=== PATIENT | male | born 1955 | race Caucasian/White ===

== ENCOUNTER 2019-02-18 13:26 | Observation (INO) ==
--- NOTE | 2019-02-18 13:51 | ERNOTE ---
Dyspnea - Date Date of Service: 02/18/19 - General Presenting Symptoms: shortness of breath Time Seen by Provider: 02/18/19 13:42 Source: patient Exam Limitations: no limitations - Immun/Allergies/Home Medications Immunizations: IMMUNIZATION HX Immunizations Up to Date Yes History of Influenza Vaccine No Hx Pneumococcal Vaccination No Allergies/Adverse Reactions: Allergies feathers Adverse Reaction (Uncoded 02/18/19 13:40) Home Medications: HOME MEDICATIONS Alprazolam [Xanax] 1 mg PO BID 11/01/13 [Last Taken Unknown] Dextroamphetamine/Amphetamine [Adderall Xr 30 mg Capsule] 30 mg PO BID 11/01/13 [Last Taken Unknown] HYDROcodone/ACETAMINOPHEN [Vicodin 5-325] 1 each PO QID 11/01/13 [Last Taken Unknown] QUEtiapine FUMARATE [Seroquel] 100 mg PO DAILY 11/01/13 [Last Taken Unknown] - History of Present Illness Narrative: Patient presents to the ED for SOB. This has been worsening since he was here in October. He takes his Lasix off and on, not consistently. The SOB has been getting progressively worse. No CP. Legs with increased swelling. No fever or cough. This started after inhaling black mold in October. His abdomen is more bloated. 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 Denies: fever/chills, chest pain/discomfort Prior Treatment: Denies: recently seen Review of Systems - Review of Systems Constitutional: Absent: fever EYE: Present: no symptoms reported ENT: Absent: sore throat Respiratory: Present: shortness of breath Cardiology: Absent: chest pain Gastrointestinal/Abdominal: Present: other - abdominal bloating. Absent: abdominal pain Genitourinary: Absent: dysuria All Other Systems: All systems neg except as marked Social History: Preferred Language Turkmen Do you have any sabianism or No cultural preference? Smoking Status Current every day smoker Have you smoked in the past 12 Yes months Do you dip or chew tobacco No Alcohol Use occasionally Drug Use none No Social History Section defined Physical Exam - Physical Exam General Appearance: Present: alert, mild distress Head Exam: Present: normal inspection, no evidence of injury Eye Exam: Normal inspection: bilateral, PERRL: bilateral Ears, Nose, Throat: Present: normal ENT inspection Neck: Present: normal inspection Respiratory: Present: respiratory distress, crackles, other - mild tachypnea Cardiovascular/Chest: Present: normal peripheral pulses, tachycardia Gastrointestinal/Abdominal: Present: normal bowel sounds, nontender, soft, other - probable ascites clinically Back Exam: Absent: CVA tenderness (R), CVA tenderness (L) Extremity Exam: Present: extremity edema, other - significant bilateral pitting edema Neurological Exam: Present: alert, no motor/sensory deficits Skin Exam: Present: normal color, warm/dry Progress - Results and Orders Patient's Lab Results:: I have reviewed the patient's lab results. - Vital Signs Patient's Vital Signs:: I have reviewed the patient's vital signs. Vital Signs: Vital Signs 02/18/19 13:37 Temperature 36.6 C Pulse Rate 111 H Respiratory Rate 26 H Blood Pressure 146/75 O2 Sat by Pulse Oximetry 95 - EKG EKG #1 EKG read: Interp. by la EKG Comments: Sinus tachycardia rate 109, PVCs. Non-specific ST/T wave changes, no STEMI noted. - X-Ray X-Ray #1 X-Ray: chest Interpretation: Interp. by me X-ray Comments: I reviewed official radiology report - CT/Ultrasound CT/Ultrasound Narrative: I reviewed official radiology report of CT - Progress/Reassessment Chief Complaint: Dyspnea Progress Note-Subjective: 02/18/19 16:39 Patient given IV lasix. This is new onset CHF. He maintains resting tachycardia. His respiratory status is improved after IV lasix. D/W Dr Jamison, will admit obs for new onset chf. Patient agreeable. Departure Clinical Impression: New onset of congestive heart failure, Edema, Tachycardia - Departure Disposition: Still a patient Condition: Fair Referrals: Anshul Monet DO [Primary Care Provider] -
[2019-02-18 14:02] LABS: Hematocrit 43.9 % (42.0-52.0); Hemoglobin 14.1 gm/dL (13.5-18.0); Mean Cell Volume 92.8 fl (78-100); Mean Corpuscular Hemoglobin 29.8 pg (27-31); Mean Corpuscular Hgb Conc 32.1 g/dl (32-36); Mean Platelet Volume 8.9 fl (8-11.3); Neutrophil # 4.9 K/mm3 (1.3-6.0); Platelet Count 357 K/mm3 (150-450); Red Blood Count 4.73 M/mm3 (4.7-6.0); Red Cell Distribution Width 15.6 % (11.5-14.0); White Blood Count 7.1 K/mm3 (4.0-10.5)
[2019-02-18 14:03] LABS: Urine Bilirubin Negative (NEGATIVE); Urine Blood Negative /ul (NEGATIVE); Urine Ketone Negative (NEGATIVE); Urine Nitrite Negative (NEGATIVE); Urine Protein Negative (NEGATIVE); Urine Specific Gravity 1.015 SP.GR. (1.005-1.030); Urine pH 5.5 pH (5.0-7.0)
[2019-02-18 14:12] LABS: Urine Appearance Clear (CLEAR); Urine Bacteria TRACE; Urine Color Colorless; Urine RBC None Seen /hpf (0-5); Urine WBC None Seen /hpf (0-5)
[2019-02-18 14:19] LABS: Albumin * 3.5 gm/dl (3.4-5.0); Anion Gap 17.1 mmol/L (6.8-13.8); Bilirubin, Total 0.5 mg/dL (0.0-1.1); Ca. Corrected For Albumin 9.6 mg/dL (8.4-10.2); Calcium * 9.5 mg/dL (7.9-10.9); Carbon Dioxide 23.6 mmol/L (24-32.6); Potassium 4.7 mmol/L (3.4-4.6)
[2019-02-18 14:20] LABS: Troponin I 0.043 ng/mL (0.00-0.10)
[2019-02-18] MEDS ORDERED: FUROSEMIDE 10 MG/ML VIAL IV ONE (14:50)
[2019-02-18] MEDS ORDERED: ACETAMINOPHEN 325 MG TABLET PO PRN (19:39)
[2019-02-18] MEDS ORDERED: HYDROcodone/ACETAMINOPHEN 1 EACH TABLET PO PRN (20:10)
--- NOTE | 2019-02-18 20:24 | HP ---
Chief Complaint - Chief Complaint Date of Service: 02/18/19 Time of Service: 20:11 Chief Complaint: I have had worsening shortness of breath for the past several months, this morning it got worse. History of Present Illness: 64-year-old male with past medical history of ADHD, anxiety disorder, CHF, controlled type 2 diabetes, hypertension, hypothyroidism, and cigarette smoker was evaluated in our ER due to worsening shortness of breath over the past several days. Patient was recently diagnosed with CHF by his PCP and was prescribed furosemide daily, however patient admits to not taking the medication as prescribed and not being very compliant with it. He notes that since October he has been having worsening shortness of breath which had remained stable but over the past several days it got worse with accompanying bilateral pedal edema that made it difficult to ambulate. When patient arrived to the ER he was saturating adequately but had labored breathing. ER labs demonstrated an elevated BNP over 5000 and a positive d-dimer. Chest CT angio was ordered to rule out PE but was negative for PE, however it demonstrated that the patient had bilateral pleural edema and pulmonary vascular congestion which indicates a CHF. Checks x-ray confirmed the pleural pleural edema and pulmonary vascular congestion. Patient also arrived with a tachycardia so EKG was performed and revealed sinus tachycardia with nonspecific ST and T waves changes and ruled out OR. Patient denied chest pain or any other symptoms besides his shortness of breath and pedal edema. Medical History (Updated 02/18/19 @ 16:53 by Nita De Paz RN) ADHD Anxiety Cataract Diabetes type 2, controlled Hypertension Hypothyroid Pterygium eye Surgical History: Surgical History (Updated 02/18/19 @ 16:51 by Nita De Paz RN) H/O hernia repair History of ear surgery Hx of adenoidectomy Family History: Family History (Last Reviewed 02/18/19 @ 17:31 by Yoli Naqvi RN) Brother Type 2 diabetes mellitus Mother Hypertension Lung cancer Social History: Patient Lives/Resources With Spouse Utilized Preferred Language Japanese Do you have any lutheran or No cultural preference? Smoking Status Current every day smoker Have you smoked in the past 12 Yes months Do you dip or chew tobacco No Alcohol Use occasionally Drug Use none No Social History Section defined Peds Patient Hx - Developmental: No Pertinent Hx Peds Patient Hx - Medical: No Pertinent Hx Peds Patient Hx - Cardiac/Respiratory: No Pertinent Hx Peds Patient Hx - Surgical: No Surgical History Patient History - Cancer: No Hx of Cancer Review Of Systems (GEN) - Review of Systems Generalized/Overall Review: Present: Fatigue, Weight gain EENTM: Present: No Symptoms Reported Respiratory: Present: Shortness of Breath Cardiac: Present: Edema Abdominal: Present: No Symptoms Reported Genitourinary: Present: No Symptoms Reported Musculoskeletal: Present: No Symptoms Reported Neurological: Present: No Symptoms Reported Skin: Present: No Symptoms Reported Endocrine: Present: No Symptoms Reported Immunizations: IMMUNIZATION HX Immunizations Up to Date Yes History of Influenza Vaccine No Hx Pneumococcal Vaccination No Allergies/Adverse Reactions: Allergies Allergy/AdvReac Type Severity Reaction Status Date / Time feathers AdvReac Uncoded 02/18/19 13:40 Home Medications: HOME MEDICATIONS Alprazolam [Xanax] 1 mg PO BID 11/01/13 [Last Taken Unknown] Dextroamphetamine/Amphetamine [Adderall Xr 30 mg Capsule] 30 mg PO BID 11/01/13 [Last Taken Unknown] HYDROcodone/ACETAMINOPHEN [Vicodin 5-325] 1 each PO QID PRN 11/01/13 [Last Taken Unknown] QUEtiapine FUMARATE [Seroquel] 100 mg PO HS 11/01/13 [Last Taken Unknown] Exam - Exam Vital Signs: Vital Signs - Last Taken Temp 36.5 C 02/18/19 17:19 Pulse 106 H 02/18/19 17:25 Resp 18 02/18/19 17:19 BP 133/90 H 02/18/19 17:19 Pulse Ox 98 02/18/19 17:19 Constitutional: Present: Alert, Oriented x3, Cooperative, Well developed, Well nourished, No distress, Elderly ENT Exam: Present: normal ENT inspection, hearing grossly normal, pharynx normal, TMs normal Eye Exam: bilateral eye: normal inspection, PERRL, EOMI Neck: Present: non-tender, full range of motion, supple, normal inspection, trachea midline Back Exam: Present: normal inspection, no CVA tenderness, no vertebral tenderness Breasts: Present: Exam deferred Respiratory: Present: chest non-tender, no respiratory distress, no accessory muscle use, crackles - Bibasilar crackles Cardiovascular/Chest: Present: normal peripheral pulses, regular rate, rhythm, no chest tenderness, no edema, no gallop, no JVD, no murmur Peripheral Pulses: carotid (R): 4+, carotid (L): 4+, femoral (R): 4+, femoral (L): 4+, dorsalis-pedis (R): 3+, dorsalis-pedis (L): 3+ Abdomen: Present: Normal bowel sounds, soft, nontender, nondistended, no rebound tenderness, no hepatospenomegaly, no masses, obese /Rectal: Present: Exam deferred Extremity: Present: lower extremity edema - Bilateral 3+ pitting edema, pedal edema Skin Exam: Present: normal color, warm/dry, no cyanosis Lymphatic: Present: no adenopathy Neurologic: Present: network development coordinator II-XII nml as tested, normal cerebellar test, no motor/sensory deficits, alert, normal mood/affect, oriented x 3 Appearance: Present: appropriate appearance, appropriate insight, neat, no memory impairment Eye contact: Present: cooperative, normal speech, avoids eye contact Thoughts: Present: normal thought pattern, no apparent hallucination Diagnostic Studies: Abnormal Lab Results 02/18/19 02/18/19 02/18/19 Range/Units 11:56 11:56 11:56 RDW 15.6 H (11.5-14.0) % Lymphocytes % 19.0 L (20-51) % Monocytes % 10.3 H (0.0-9) % Lymphocytes # 1.35 L (1.5-3.5) k/mm3 D-Dimer (0.19-0.49) ug/mL Potassium 4.7 H (3.4-4.6) mmol/L Carbon Dioxide 23.6 L (24-32.6) mmol/L Anion Gap 17.1 H (6.8-13.8) mmol/L B-Natriuretic Peptide 5518 H (5-175) pg/mL Urine Urobilinogen 2.0 H (NORMAL) EU/dl 02/18/19 Range/Units 13:54 RDW (11.5-14.0) % Lymphocytes % (20-51) % Monocytes % (0.0-9) % Lymphocytes # (1.5-3.5) k/mm3 D-Dimer 2.24 H (0.19-0.49) ug/mL Potassium (3.4-4.6) mmol/L Carbon Dioxide (24-32.6) mmol/L Anion Gap (6.8-13.8) mmol/L B-Natriuretic Peptide (5-175) pg/mL Urine Urobilinogen (NORMAL) EU/dl Laboratory Results WBC 7.1 K/mm3 (4.0-10.5) 02/18/19 11:56 RBC 4.73 M/mm3 (4.7-6.0) 02/18/19 11:56 Hgb 14.1 gm/dL (13.5-18.0) 02/18/19 11:56 Hct 43.9 % (42.0-52.0) 02/18/19 11:56 MCV 92.8 fl (78-100) 02/18/19 11:56 MCH 29.8 pg (27-31) 02/18/19 11:56 MCHC 32.1 g/dl (32-36) 02/18/19 11:56 RDW 15.6 % (11.5-14.0) H 02/18/19 11:56 Plt Count 357 K/mm3 (150-450) 02/18/19 11:56 MPV 8.9 fl (8-11.3) 02/18/19 11:56 Immature Gran % (Auto) 0.30 % (0.001-0.429) 02/18/19 11:56 Immature Gran # (Auto) 0.02 K/mm3 (0.000-0.0310) 02/18/19 11:56 69.0 % (42-75.0) 02/18/19 11:56 19.0 % (20-51) L 02/18/19 11:56 10.3 % (0.0-9) H 02/18/19 11:56 1.1 % (0.0-3.0) 02/18/19 11:56 0.3 % (0.0-1.0) 02/18/19 11:56 Nucleated RBC % 0.0 k/mm3 (0-1) 02/18/19 11:56 4.9 K/mm3 (1.3-6.0) 02/18/19 11:56 1.35 k/mm3 (1.5-3.5) L 02/18/19 11:56 0.7 k/mm3 (0.0-1.0) 02/18/19 11:56 0.1 k/mm3 (0.0-0.7) 02/18/19 11:56 Absolute Basophils 0.0 k/mm3 (0.0-0.1) 02/18/19 11:56 2.24 ug/mL (0.19-0.49) H 02/18/19 13:54 Sodium 138 mmol/L (132-142) 02/18/19 11:56 138 mmol/L (130-142) 02/18/19 11:56 Potassium 4.7 mmol/L (3.4-4.6) H 02/18/19 11:56 Chloride 102 mmol/L (97-106) 02/18/19 11:56 Carbon Dioxide 23.6 mmol/L (24-32.6) L 02/18/19 11:56 17.1 mmol/L (6.8-13.8) H 02/18/19 11:56 BUN 19 mg/dL (6-23) 02/18/19 11:56 1.19 mg/dL (0.4-1.4) 02/18/19 11:56 Est GFR (Non-Af Amer) 66 mL/min (60-130) 02/18/19 11:56 16.0 (9.0-21.6) 02/18/19 11:56 98 mg/dL (70-110) 02/18/19 11:56 Calcium 9.5 mg/dL (7.9-10.9) 02/18/19 11:56 Calcium Adj for Albumin 9.6 mg/dL (8.4-10.2) 02/18/19 11:56 0.5 mg/dL (0.0-1.1) 02/18/19 11:56 AST 25 U/L (0-48) 02/18/19 11:56 ALT 31 U/L (19-67) 02/18/19 11:56 123 U/L (50-170) 02/18/19 11:56 0.043 ng/mL (0.00-0.10) 02/18/19 11:56 B-Natriuretic Peptide 5518 pg/mL (5-175) H 02/18/19 11:56 7.0 gm/dL (6.2-8.2) 02/18/19 11:56 3.5 gm/dl (3.4-5.0) 02/18/19 11:56 Colorless 02/18/19 11:56 Clear (CLEAR) 02/18/19 11:56 5.5 pH (5.0-7.0) 02/18/19 11:56 Ur Specific [place] 1.015 SP.GR. (1.005-1.030) 02/18/19 11:56 Negative mg/dL (NEGATIVE) 02/18/19 11:56 Negative mg/dL (NEGATIVE) 02/18/19 11:56 Negative mg/dL (NEGATIVE) 02/18/19 11:56 Negative /ul (NEGATIVE) 02/18/19 11:56 Negative (NEGATIVE) 02/18/19 11:56 Negative mg/dl (NEGATIVE) 02/18/19 11:56 2.0 EU/dl (NORMAL) H 02/18/19 11:56 Ur Leukocyte Esterase Negative /ul (NEGATIVE) 02/18/19 11:56 None seen /hpf (0-5) 02/18/19 11:56 None seen /hpf (0-5) 02/18/19 11:56 Ur Epithelial Cells Trace /hpf (0-5) 02/18/19 11:56 Trace (NONE) 02/18/19 11:56 No culture indicated 02/18/19 11:56 Assessment/Plan - Narrative Narrative: After evaluating patient and the medical record, decision to admit to [facility] [place] for treatment of decompensated CHF was taken. Patient will be treated with IV Lasix every 12 hours and will undergo daily weights to monitor his input and output. He was also ordered to be administered an MARCIA inhibitor and beta- alicia as per protocol for decompensated CHF. Follow-up BNP and CMP were ordered for tomorrow morning to evaluate electrolytes kidney function and congestive heart failure. In the meantime patient will be administered his routine meds to treat his anxiety chronic low back pain and ADHD. We will monitor her closely with telemetry and vital checks every couple of hours. - Assessment/Plan (1) Acute decompensated heart failure Problem: Acute (2) Sinus tachycardia by electrocardiogram Problem: Acute (3) Anxiety Problem: Chronic (4) Nicotine dependence Problem: Chronic (5) Pleural effusion due to CHF (congestive heart failure) Problem: Acute
[2019-02-18] MEDS ORDERED: NICOTINE 21 MG PATC TD SCH (20:30)
[2019-02-18] MEDS: FUROSEMIDE 10 MG/ML VIAL IV SCH (20:35)
[2019-02-18] MEDS: ALPRAZolam 1 MG TABLET PO SCH (20:44)
[2019-02-18] MEDS ORDERED: QUEtiapine FUMARATE 100 MG TABLET PO SCH (21:00)
[2019-02-18] MEDS: FAMOTIDINE 20 MG in DEXTROSE 5 % IN WATER 100 ML IV SCH ×2 (22:19)
[2019-02-19 05:41] LABS: Albumin * 3.1 gm/dl (3.4-5.0); Anion Gap 11.3 mmol/L (6.8-13.8); BUN/Creatinine Ratio 16.4 (9.0-21.6); Bilirubin, Total 0.5 mg/dL (0.0-1.1); Ca. Corrected For Albumin 9.4 mg/dL (8.4-10.2); Carbon Dioxide 31.3 mmol/L (24-32.6); Potassium 3.6 mmol/L (3.4-4.6); Total Protein 6.3 gm/dL (6.2-8.2)
[2019-02-19] MEDS ORDERED: METOPROLOL SUCCINATE 25 MG TABLET.SA PO SCH (09:00)
[2019-02-19] MEDS ORDERED: LISINOPRIL 5 MG TABLET PO SCH (09:00)
[2019-02-19] MEDS: FUROSEMIDE 10 MG/ML VIAL IV SCH (09:32)
[2019-02-19] MEDS: FAMOTIDINE 20 MG in DEXTROSE 5 % IN WATER 100 ML IV SCH ×2 (09:33)
[2019-02-19] MEDS: ALPRAZolam 1 MG TABLET PO SCH (10:37)
--- NOTE | 2019-02-19 10:55 | DS ---
(1) Acute decompensated heart failure Problem: Resolved (2) Sinus tachycardia by electrocardiogram Problem: Resolved (3) Anxiety Problem: Chronic (4) Nicotine dependence Problem: Chronic (5) Pleural effusion due to CHF (congestive heart failure) Problem: Acute Description of Stay: 64-year-old male admitted to [facility] with a diagnosis of decompensated CHF with bilateral pleural effusions was evaluated at bedside and was found to be afebrile in no acute distress. Patient's shortness of breath has resolved and he reports feeling better than when he came to our facility. He was treated with IV Lasix and underwent daily weights with strict input and output. Patient's tachycardia has resolved and he maintains adequate oxygen saturation. Therefore given these findings, patient will be discharge with a prescription for p.o. Lasix and instructions, an MARCIA inhibitor, and beta- alicia to follow-up with his PCP. He was counseled on the importance of compliance with his medication and taking all medication as prescribed. Procedures Performed: none Results and Findings: Lab Pending Results 02/18/19 11:56: WBC 7.1, RBC 4.73, Hgb 14.1, Hct 43.9, MCV 92.8, MCH 29.8, MCHC 32.1, RDW 15.6 H, Plt Count 357, MPV 8.9, Immature Gran % (Auto) 0.30, Immature Gran # (Auto) 0.02, Neutrophils % 69.0, Lymphocytes % 19.0 L, Monocytes % 10.3 H, Eosinophils % 1.1, Basophils % 0.3, Nucleated RBC % 0.0, Neutrophils # 4.9, Lymphocytes # 1.35 L, Monocytes # 0.7, Eosinophils # 0.1, Absolute Basophils 0.0 02/18/19 11:56: Sodium 138, Plasma Sodium 138, Potassium 4.7 H, Chloride 102, Carbon Dioxide 23.6 L, Anion Gap 17.1 H, BUN 19, Creatinine 1.19, Est GFR (Non- Af Amer) 66, BUN/Creatinine Ratio 16.0, Random Glucose 98, Calcium 9.5, Calcium Adj for Albumin 9.6, Total Bilirubin 0.5, AST 25, ALT 31, Alkaline Phosphatase 123, Troponin I 0.043, B-Natriuretic Peptide 5518 H, Total Protein 7.0, Albumin 3.5 02/18/19 11:56: Urine Color Colorless, Urine Appearance Clear, Urine pH 5.5, Ur Specific [place] 1.015, Urine Protein Negative, Urine Glucose (UA) Negative, Urine Ketones Negative, Urine Blood Negative, Urine Nitrate Negative, Urine Bilirubin Negative, Urine Urobilinogen 2.0 H, Ur Leukocyte Esterase Negative, Urine RBC None seen, Urine WBC None seen, Ur Epithelial Cells Trace, Urine Bacteria Trace, Urine Culture Comments No culture indicated 02/18/19 13:54: D-Dimer 2.24 H 02/19/19 05:20: Sodium 143 H, Plasma Sodium 143 H, Potassium 3.6 D, Chloride 104, Carbon Dioxide 31.3, Anion Gap 11.3, BUN 21, Creatinine 1.28, Est GFR (Non- Af Amer) 61, BUN/Creatinine Ratio 16.4, Random Glucose 99, Calcium 9.0, Calcium Adj for Albumin 9.4, Total Bilirubin 0.5, AST 20, ALT 24, Alkaline Phosphatase 108, B-Natriuretic Peptide 4725 H, Total Protein 6.3, Albumin 3.1 L Discharge Location: Home Disposition: Home self-care Condition: Fair Face to Face Encounter completed per [facility] Guidelines: No Discharge Activity: Activity as tolerated Discharge Diet: Consistent carbs Referrals: Anshul Monet DO [Primary Care Provider] - Additional Patient Instructions (free text): -Please make TCM appointment unless fdc discharge. Thank you! Roxanna @ [phone]. Prescriptions (Any new or edited meds): Furosemide 20 mg PO DAILY #30 tablet Metoprolol Succinate [Toprol Xl] 25 mg PO DAILY 30 Days #30 tab Lisinopril [Zestril] 5 mg PO DAILY #30 tab Complete Home Medications List: Complete Home Medication List: Alprazolam [Xanax] 1 mg PO BID 11/01/13 Dextroamphetamine/Amphetamine [Adderall Xr 30 mg Capsule] 30 mg PO BID 11/01/13 HYDROcodone/ACETAMINOPHEN [[place] 5-325] 1 each PO QID PRN 11/01/13 QUEtiapine FUMARATE [Seroquel] 100 mg PO HS 11/01/13 Furosemide 20 mg PO DAILY #30 tablet 02/19/19 Lisinopril [Zestril] 5 mg PO DAILY #30 tab 02/19/19 Metoprolol Succinate [Toprol Xl] 25 mg PO DAILY 30 Days #30 tab 02/19/19
[2019-02-19 14:01] VITALS: BP 109/74
== END 2019-02-19 14:20 | disposition home or self-care (01) ==
LOC: SUPCPDRO → ER 13:26 → MS 13:26
PROVIDERS: ADMIT Family Medicine; ATTEND Family Medicine
DX: J90 Pleural effusion, not elsewhere classified; F17.200 Nicotine dependence, unspecified, uncomplicated; R00.0 Tachycardia, unspecified; F41.9 Anxiety disorder, unspecified; I50.9 Heart failure, unspecified
CPT/HCPCS: 36415; 71020; 71046; 71275; 80053; 81001; 83519; 83880; 84484; 85025; 85379; 93005; 94760; 96365; 96366; 96375; 99285; G0378; Q9967